=== PATIENT | female | born 1935 | race Caucasian/White ===

== ENCOUNTER 2022-06-01 17:55 | Observation (INO) | payer MEDICARE, OTHER ==
[~2022-06-01] VITALS: Ht 160 cm; Wt 60.3 kg
[2022-06-01] MEDS ORDERED: ZOLP10TA2 PO (19:57)
[2022-06-01] MEDS ORDERED: PREDNISONE 20 MG TABLET PO ONE (20:00)
[2022-06-01] MEDS ORDERED: ZOLPIDEM TARTRATE 5 MG TAB PO SCH (20:00)
[2022-06-01] MEDS ORDERED: 0.9%NACL 1000ML 1,000 ML IV SCH (21:30)
[2022-06-01 21:37] LABS: BASOPHILS % (AUTO) 0.6 % (0.0-5.0); HEMATOCRIT 37.5 % (36-48); LYMPHOCYTES % (AUTO) 15.6 % (21.0-51.0); MEAN CORPUSCULAR HEMOGLOBIN 30.2 pg (27.0-33.0); MEAN CORPUSCULAR HGB CONC 34.1 g/dL (32.0-36.0); MEAN CORPUSCULAR VOLUME 88.4 fL (79-99); MONOCYTES % (AUTO) 7.9 % (3.0-13.0); NEUTROPHILS % (AUTO) 74.8 % (40.0-77.0); PLATELET COUNT (AUTO) 379 K/uL (130-400); RED BLOOD CELL COUNT(AUTO) 4.24 MIL/uL (4.00-5.50); RED CELL DISTRIBUTION WIDTH 14.3 % (11.0-15.5); WHITE BLOOD COUNT (AUTO) 6.9 K/uL (4.8-10.8)
[2022-06-01 21:55] LABS: ALBUMIN 3.9 g/dL (3.5-5.0); CREATININE 1.2 mg/dL (0.5-1.5); POTASSIUM 4.1 mmol/L (3.5-5.1); TOTAL PROTEIN, SERUM 6.9 g/dL (6.0-8.3)
[2022-06-01 23:10] LABS: APPEARANCE,URINE CLEAR (CLEAR); BILIRUBIN,URINE NEGATIVE (NEGATIVE); COLOR,URINE LIGHT-YELLOW (YELLOW); GLUCOSE, URINE (UA) NEGATIVE (NEGATIVE); KETONES,URINE 150 mg/dL (NEGATIVE); LEUKOCYTE ESTERASE ,URINE NEGATIVE Leu/uL (NEGATIVE); NITRATE,URINE NEGATIVE (NEGATIVE); PH,URINE 5.5 (5.0-8.0); PROTEIN,URINE 30 mg/dL (NEGATIVE); UROBILINOGEN,URINE 0.2 mg/dL (0.2-1.0)
[2022-06-01 23:15] LABS: MUCUS,URINE RARE LPF (None Seen); RBC,URINE 0-1 /HPF (0-1); SQUAMOUS EPITHELIAL CELL,UR RARE /HPF (0-2)
[2022-06-01] MEDS ORDERED: ACETAMINOPHEN 325 MG TAB PO ONE (23:30)
[2022-06-02] MEDS ORDERED: NITROGLYCERIN 0.4 MG SL TAB SL PRN
[2022-06-02] MEDS ORDERED: ACETAMINOPHEN 325 MG TAB PO PRN
[2022-06-02] MEDS ORDERED: ONDANSETRON 4MG INJ IV PRN
[2022-06-02] MEDS ORDERED: 0.9%NACL 1000ML 1,000 ML IV SCH
[2022-06-02] MEDS ORDERED: HYDROXYZINE 25 MG TABLET PO PRN ×2 (02:00→05:30)
[2022-06-02 04:15] VITALS: BP 153/80
[2022-06-02] MEDS ORDERED: VITAD50000 PO (04:52)
[2022-06-02] MEDS ORDERED: MELA1TAB28 PO (04:52)
[2022-06-02] MEDS ORDERED: ACET-2743 PO (04:52)
[2022-06-02] MEDS ORDERED: QUET25TA36 PO (04:52)
[2022-06-02] MEDS ORDERED: SPIR25TA6 PO (04:52)
[2022-06-02] MEDS ORDERED: ASPI-1005 PO (04:52)
[2022-06-02] MEDS ORDERED: RAMI5CAP66 PO (04:52)
[2022-06-02] MEDS ORDERED: OXYB5TAB15 PO (04:52)
[2022-06-02] MEDS: ACETAMINOPHEN 325 MG TAB PO PRN ×2 (05:19→22:00)
[2022-06-02 07:16] LABS: ALBUMIN 3.4 g/dL (3.5-5.0); CREATININE 0.8 mg/dL (0.5-1.5); MAGNESIUM 1.6 mg/dL (1.80-2.40); POTASSIUM 3.5 mmol/L (3.5-5.1); TOTAL PROTEIN, SERUM 6.1 g/dL (6.0-8.3)
[2022-06-02 08:00] VITALS: BP 109/53
[2022-06-02] MEDS ORDERED: **HM**Cholecalciferol (Vitamin D3) 50,000 UNITS PO SCH (09:00)
[2022-06-02] MEDS: OXYBUTYNIN CHLORIDE 5 MG TABLET PO SCH ×2 (09:02→19:54)
[2022-06-02] MEDS: LISINOPRIL 20 MG TABLET PO SCH (09:03)
[2022-06-02] MEDS: SPIRONOLACTONE 25 MG TAB PO SCH (09:03)
[2022-06-02] MEDS: FAMOTIDINE 20MG TAB PO SCH (09:03)
[2022-06-02] MEDS: ASPIRIN 81MG CHEW TAB PO SCH (09:03)
[2022-06-02 12:00] VITALS: BP 118/82
[2022-06-02 20:34] VITALS: BP 140/80
[2022-06-02] MEDS ORDERED: **HM**(Melatonin/Pyridoxine HCl (B6) (Melatonin 3 mg Tablet PO SCH (21:00)
[2022-06-02] MEDS ORDERED: QUETIAPINE FUMARATE 25 MG TAB PO SCH (21:00)
[2022-06-02] MEDS ORDERED: HYDROXYZINE 25 MG TABLET PO ONE (23:30)
[2022-06-02 23:33] VITALS: BP 150/88
[2022-06-03 04:06] VITALS: BP 126/80
[2022-06-03 08:00] VITALS: BP 140/76
[2022-06-03] MEDS: SPIRONOLACTONE 25 MG TAB PO SCH (08:05)
[2022-06-03] MEDS: OXYBUTYNIN CHLORIDE 5 MG TABLET PO SCH (08:06)
[2022-06-03] MEDS: LISINOPRIL 20 MG TABLET PO SCH (08:06)
[2022-06-03] MEDS: ASPIRIN 81MG CHEW TAB PO SCH (08:06)
[2022-06-03] MEDS: FAMOTIDINE 20MG TAB PO SCH (08:06)
[2022-06-03 08:28] LABS: BASOPHILS % (AUTO) 0.7 % (0.0-5.0); EOSINOPHILS % (AUTO) 4.1 % (0.0-8.0); LYMPHOCYTES % (AUTO) 17.2 % (21.0-51.0); MEAN CORPUSCULAR HEMOGLOBIN 29.9 pg (27.0-33.0); MEAN CORPUSCULAR HGB CONC 33.8 g/dL (32.0-36.0); MEAN CORPUSCULAR VOLUME 88.3 fL (79-99); MONOCYTES % (AUTO) 7.8 % (3.0-13.0); NEUTROPHILS % (AUTO) 70.2 % (40.0-77.0); PLATELET COUNT (AUTO) 319 K/uL (130-400); RED BLOOD CELL COUNT(AUTO) 3.85 MIL/uL (4.00-5.50); RED CELL DISTRIBUTION WIDTH 14.4 % (11.0-15.5); WHITE BLOOD COUNT (AUTO) 5.4 K/uL (4.8-10.8)
[2022-06-03 08:42] LABS: CREATININE 0.8 mg/dL (0.5-1.5); POTASSIUM 3.1 mmol/L (3.5-5.1)
[2022-06-03 08:47] LABS: ALBUMIN 3.3 g/dL (3.5-5.0); TOTAL PROTEIN, SERUM 6.1 g/dL (6.0-8.3)
[2022-06-03] MEDS ORDERED: LIDOCAINE HCL-MPF 1% 2ML VIAL IV PRN (09:00)
[2022-06-03] MEDS ORDERED: POTASSIUM CHLORIDE 10% ELIXIR 20 MEQ/15 ML UDCUP PO PRN (09:00)
[2022-06-03] MEDS ORDERED: POTASSIUM CHLORIDE 20MEQ/100ML 100 ML IV PRN (09:00)
[2022-06-03] MEDS: KCL 20 MEQ ERTAB PO PRN ×3 (09:44→15:05)
[2022-06-03 12:00] VITALS: BP 139/75
[2022-06-03] MEDS: ACETAMINOPHEN 325 MG TAB PO PRN (13:38)
== END 2022-06-03 15:15 ==
LOC: EDH 17:55 → EDHIP 23:57 → 4AH 06-02 04:10
PROVIDERS: ADMIT Internal Medicine; ATTEND Internal Medicine
DX: R62.7 Adult failure to thrive (principal); G47.00 Insomnia, unspecified; I11.0 Hypertensive heart disease with heart failure; I50.9 Heart failure, unspecified; I25.10 Atherosclerotic heart disease of native coronary artery without angina pectoris; M19.90 Unspecified osteoarthritis, unspecified site; Z87.891 Personal history of nicotine dependence; Z90.710 Acquired absence of both cervix and uterus; Z98.891 History of uterine scar from previous surgery; Z79.899 Other long term (current) drug therapy; Z98.890 Other specified postprocedural states
CPT/HCPCS: 96360; 99285; 84484; 80053 ×3; 85025 ×2; 81001; 36415 ×3; 71045; 93005; 96361 ×2; 83735; 97161; 97039 ×2; 97116; 97530; G0378 ×38; J7030